=== PATIENT | male | born 1965 | race Caucasian/White ===

== ENCOUNTER 2020-06-26 14:57 | Emergency (ER) | payer MEDICAID ==
[~2020-06-26] VITALS: Ht 137.2 cm; Wt 61.7 kg
[2020-06-26 15:11] VITALS: BP 131/70; Ht 137.2 cm; Wt 61.7 kg
== END 2020-06-26 16:58 | disposition home or self-care (01) ==
LOC: ED 14:57
DX: S46.912A Strain of unspecified muscle, fascia and tendon at shoulder and upper arm level, left arm, initial encounter (principal); X58.XXXA Exposure to other specified factors, initial encounter; Y93.89 Activity, other specified; Y92.89 Other specified places as the place of occurrence of the external cause; Y99.8 Other external cause status